=== PATIENT | male | born 1990 | race Caucasian/White ===

== ENCOUNTER 2017-06-04 06:43 | Emergency (ER) | payer OTHER ==
--- NOTE | 2017-06-04 07:23 | ERNOTE ---
<MadiLeno davis - Last Filed: 06/04/17 07:58> Abdominal HPI - General Chief Complaint: Abdominal Pain Time Seen by Provider: 06/04/17 07:10 Source: patient Exam Limitations: no limitations - Immun/Allergies/Home Medications Immunizatons: IMMUNIZATION HX Immunizations Up to Date Yes Allergies/Adverse Reactions: Allergies latex Allergy (Verified 06/04/17 06:54) mesalamine [From Asacol] Allergy (Verified 06/04/17 06:54) Home Medications: HOME MEDICATIONS Imodium 4 mg PO QID 09/20/14 [Last Taken Unknown] - History of Present Illness Narrative: Pt states he was diagnosed with ulcerative colitis and had a partial colectomy in 2007. He had a lower endoscopy last month and was told he may have Crohn's. Treatment with Imuran is planned but he was awaiting labs that were going to be drawn today. This weekend he began to have abdominal pain and it has worsened up to last night. Last night he had significant enough abdominal pain that he only slept for approx. 1 hour. Last BM was yesterday and seemed normal although it is unusual for him to only go twice in a day as he did yesterday Timing: getting worse Quality: moderate, severe Activities at Onset: none Modifying Factors - (Worsens): Present: eating Associated Symptoms: Present: back pain - he is unsure if it is related to his abdominal pain, nausea. Absent: diarrhea-gross blood, diarrhea-mucous, vomiting Review of Systems - Review of Systems Constitutional: Present: fatigue. Absent: recent illness EYE: Present: no symptoms reported ENT: Present: no symptoms reported - dry mouth, other Respiratory: Present: no symptoms reported Cardiology: Present: no symptoms reported Gastrointestinal/Abdominal: Present: See HPI, eating less, drinking less Genitourinary: Present: no symptoms reported Musculoskeletal: Present: back pain Skin: Present: dryness. Absent: rash Neurological: Present: no symptoms reported Endocrine: Present: increased thirst Hematologic/Lymphatic: Present: no symptoms reported Psych: Present: no symptoms reported - Patient's Past Medical History Patient History - Medical: Other - ulcerative colitis Patient History - Cardiac/Respiratory: No pertinent hx Patient History - Surgical Procedures: Other - partial colectomy - Social History Living Situations: home Alcohol Use: none Drug Use: none - Immunizations Immunizations Up to Date: Yes Physical Exam - Physical Exam General Appearance: Present: wd/wn, alert, no apparent distress Head Exam: Present: normal inspection, no evidence of injury Eye Exam: Normal inspection: bilateral Ears, Nose, Throat: Present: normal ENT inspection Neck: Present: normal inspection, nontender Respiratory: Present: no respiratory distress, normal breath sounds, lungs clear Cardiovascular/Chest: Present: regular rate, rhythm, no murmur Gastrointestinal/Abdominal: Present: tenderness - B/L upper quads moderate. RLQ mild, abnormal bowel sounds - hypoactive. Absent: distended, guarding, rebound Back Exam: Present: normal inspection, normal range of motion, no CVA tenderness Extremity Exam: Present: normal inspection, normal range of motion, no edema Neurological Exam: Present: alert, oriented, normal mood/affect Skin Exam: Present: normal color, warm/dry Lymphatic Exam: Present: no adenopathy ED Progress - Results and Orders Patient's Lab Results:: I have reviewed the patient's lab results. - Vital Signs Vital Signs: Vital Signs 06/04/17 06:50 Temperature 36.5 C Pulse Rate 66 Respiratory 12 Rate Blood Pressure 140/91 O2 Sat by Pulse 100 Oximetry - Progress/Reassessment Chief Complaint: Abdominal Pain - Transfer of Care Physician Sign Out: Leno Damon Receiving Physician: Vaihd Dunn Pending Results: CT/MRI results, Labs, Pain-control Expected Disposition: Admit Departure - Departure Clinical Impression: Inflammatory bowel disease, SBO (small bowel obstruction) Condition: Fair Referrals: Tram Figueredo DO [Primary Care Provider] - <Vahid Dunn - Last Filed: 06/04/17 12:02> Abdominal HPI - Immun/Allergies/Home Medications Immunizatons: IMMUNIZATION HX Immunizations Up to Date Yes - Patient's Past Medical History Patient History - Medical: Other Patient History - Surgical Procedures: Other - colectomy Physical Exam - Physical Exam General Appearance: Present: no apparent distress, severe distress ED Progress - Vital Signs Patient's Vital Signs:: I have reviewed the patient's vital signs. Vital Signs: Vital Signs 06/04/17 06/04/17 06/04/17 06:50 08:02 11:35 Temperature 36.5 C 36.6 C 36.6 C Pulse Rate 66 63 60 Respiratory 12 12 15 Rate Blood Pressure 140/91 133/86 130/80 O2 Sat by Pulse 100 100 100 Oximetry - X-Ray X-Ray #1 X-Ray: abdomen - reviewed by me - CT/Ultrasound CT/Ultrasound Narrative: CT the abdomen and pelvis was reviewed by me as well as Dr. Portillo Plan - Plan Plan: Because of the profound complicated nature of his previous colectomy and the creation of a J-pouch and neorectum, he will need to be transferred to the [facility] with his small bowel obstruction. It is highly likely that the patient may require a surgical procedure with release of adhesions and possible reconstruction of the J-pouch. These procedures far exceed our capabilities here at [place], as well as the likely need for GI referral. I am suspecting that he has more than the previously diagnosed ulcerative colitis and may have underlying Crohn's disease. Departure - Critical Care Total Time (mins): 40 Critical Care: Patient required numerous interventions in the form of IV fluids, anti-emetics and pain medications. Numerous attempts at placing an NG tube were unsuccessful due to marked laryngeal spasm and difficulty breathing.
[2017-06-04 07:47] LABS: Urine Bilirubin Negative (NEGATIVE); Urine Blood 50 /ul (NEGATIVE); Urine Ketone 15 mg/dL (NEGATIVE); Urine Nitrite Negative (NEGATIVE); Urine Protein Negative (NEGATIVE); Urine Specific Gravity >=1.030 SP.GR. (1.005-1.030); Urine Urobilinogen Normal (NORMAL); Urine pH 5.5 pH (5.0-7.0)
[2017-06-04 07:48] LABS: Hematocrit 44.7 % (42.0-52.0); Hemoglobin 15.3 gm/dL (13.5-18.0); Mean Cell Volume 89.9 fl (78-100); Mean Corpuscular Hemoglobin 30.8 pg (27-31); Mean Corpuscular Hgb Conc 34.2 g/dl (32-36); Mean Platelet Volume 8.8 fl (6.0-9.5); Neutrophil # 11.9 K/mm3 (1.3-6.0); Neutrophil % 79.1 % (42-75.0); Platelet Count 388 K/mm3 (150-450); Red Blood Count 4.97 M/mm3 (4.7-6.0); Red Cell Distribution Width 12.6 % (11.5-14.0); White Blood Count 15.1 K/mm3 (4.0-10.5)
[2017-06-04] MEDS ORDERED: ONDANSETRON HCL/PF 2 MG/ML VIAL ONE ×2 (07:48→11:34)
[2017-06-04] MEDS: NORMAL SALINE 1,000 ML IV ONE ×2 (07:53→12:00)
[2017-06-04 07:54] LABS: Urine Appearance Clear; Urine Bacteria None Seen; Urine Color Yellow; Urine WBC None Seen /hpf (0-5)
[2017-06-04] MEDS: ONDANSETRON HCL/PF 2 MG/ML VIAL IV ONE ×2 (07:54→11:36)
[2017-06-04] MEDS ORDERED: MORPHINE SULFATE 2 MG/ML DISP.SYRIN ONE ×2 (07:57→08:48)
[2017-06-04] MEDS: MORPHINE SULFATE 2 MG/ML DISP.SYRIN IV ONE ×2 (07:59→08:50)
[2017-06-04] MEDS ORDERED: DIATRIZOATE MEGLUMINE, SODIUM 30 ML BTL ONE (08:07)
[2017-06-04] MEDS: DIATRIZOATE MEGLUMINE, SODIUM 30 ML BTL PO ONE (08:11)
[2017-06-04 08:18] LABS: Albumin * 4.6 gm/dl (3.4-5.0); Anion Gap 18.3 mmol/L (6.8-13.8); BUN/Creatinine Ratio 13.9 (9.0-21.6); Bilirubin, Total 1.3 mg/dL (0.0-1.1); CRP 2.3 mg/dL (0.0-0.9); Ca. Corrected For Albumin 8.9 mg/dL (8.4-10.2); Calcium * 9.7 mg/dL (7.9-10.9); Carbon Dioxide 23.7 mmol/L (24-32.6); Total Protein 8.5 gm/dL (6.2-8.2)
[2017-06-04] MEDS ORDERED: HYDROmorphone HCL 1 MG/ML DISP.SYRIN ONE ×3 (09:32→12:12)
[2017-06-04] MEDS: HYDROmorphone HCL 1 MG/ML DISP.SYRIN IV ONE ×3 (09:34→12:08)
[2017-06-04 13:47] VITALS: BP 140/83
== END 2017-06-04 12:10 | disposition short-term general hospital (02) ==
LOC: ER 06:43
DX: K52.9 Noninfective gastroenteritis and colitis, unspecified (principal); K56.69 Other intestinal obstruction
CPT/HCPCS: 36415; 74020; 74177; 80053; 81001; 82150; 83605; 83690; 85025; 85652; 86140; 96374; 96375; 99291; J2405